=== PATIENT | male | born 1985 | race Caucasian/White ===

== ENCOUNTER 2017-12-08 10:10 | Inpatient (IN) | payer SELFPAY ==
[2017-12-08] VITALS (9 sets, daily range): BP systolic 89–132; BP diastolic 63–83; PULSE 62–92; RESP 16–18; TEMP 97.6–98.5; O2SAT 96–100
[~2017-12-08] VITALS: Ht 172.7 cm; Wt 52.7 kg
[~2017-12-08 10:10] MED LIST: ADDE30TA PO; DICL75 PO; HYDR-3533 PO; XANA1TAB6 PO
[2017-12-08] MEDS ORDERED: SODIUM CHLORIDE 0.9% FLUSH 10 ML FLUSH IVF PRN (10:30)
[2017-12-08] MEDS ORDERED: MORPHINE SULFATE 4 MG/ML INJ IV PUSH ONE ×2 (10:30→11:00)
[2017-12-08] MEDS ORDERED: SODIUM CHLOR 0.9% 1000 ML INJ 1,000 ML IV ONE ×2 (10:30→10:45)
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
[2017-12-08 11:01] LABS: PROTHROMBIN TIME - PATIENT 10.5 SEC (9.8-11.6)
[2017-12-08 11:03] LABS: CREATININE 0.72 MG/DL (0.60-1.30)
[2017-12-08 11:04] LABS: AUTOMATED NEUTROPHIL # 4.7 TH/MM3 (1.8-7.7); BASOPHIL # 0.4 TH/MM3 (0-0.2); BASOPHIL % 3.5 % (0.0-2.0); EOSINOPHIL # 0.4 TH/MM3 (0-0.4); HEMATOCRIT 42.3 % (39.0-51.0); HEMOGLOBIN 13.9 GM/DL (13.0-17.0); LYMPH % 47.1 % (9.0-44.0); LYMPHOCYTE # 5.7 TH/MM3 (1.0-4.8); MEAN CELL VOLUME 89.4 FL (80.0-100.0); MEAN CORPUSCULAR HEMOGLOBIN 29.3 PG (27.0-34.0); MEAN CORPUSCULAR HGB CONC 32.7 % (32.0-36.0); MEAN PLATELET VOLUME 8.3 FL (7.0-11.0); MONOCYTE # 0.8 TH/MM3 (0-0.9); NEUT % 39.4 % (16.0-70.0); PLATELET COUNT 279 TH/MM3 (150-450); RED BLOOD COUNT 4.74 MIL/MM3 (4.50-5.90); RED CELL DISTRIBUTION WIDTH 12.8 % (11.6-17.2)
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
[2017-12-08] MEDS ORDERED: IOHEXOL 350 MG/ML 10 ML VIAL (for RAD DIAG) IVCONTRAST ONE (11:39)
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
[2017-12-08 11:42] LABS: BILIRUBIN, URINE NEG (NEG); BLOOD, URINE NEG (NEG); GLUCOSE,URINE NEG (NEG); KETONE, URINE NEG (NEG); NITRITE,URINE NEG (NEG); URINE COLOR YELLOW (YELLW/STRAW); URINE LEUKOCYTE ESTERASE NEG (NEG)
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
[2017-12-08 12:17] LABS: ATYPICAL LYMPHOCYTES 13 % (0-0); BANDS 2 % (0-6); LYMPHOCYTES 33 % (9-44); MONOCYTES 6 % (0-8); NEUTROPHIL # MANUAL DIFF 5.8 TH/MM3 (1.8-7.7); POLYS (SEG NEUTROPHILS) 46 % (16-70)
--- NOTE | 2017-12-08 12:26 | PD ---
Physical Exam Date Seen by Provider: December 08, 2017 Narrative I was asked repair laceration to the scalp. LACERATION LOCATION: Right parietal scalp LENGTH: 2.5 cm NUMBER OF STITCHES/LUPIS: 7 lupis REPAIR: The area of the laceration was prepped with Betadine and sterilely draped. The laceration was infiltrated with Lidocaine with epinephrine. The wound was copiously irrigated and explored without evidence of foreign body, tendon injury or neurovascular injury. The wound was closed using 7 lupis. This was a single layer repair. A sterile dressing was applied. The patient was advised to keep the dressing clean and dry. Patient tolerated the procedure well. Data Data Last Documented VS Vital Signs Date Time Temp Pulse Resp B/P (MAP) Pulse Ox O2 Delivery O2 Flow Rate FiO2 12/08/17 11:00 16 12/08/17 10:55 99 Room Air 12/08/17 10:10 97.6 62 89/69 (76) Orders Orders Basic Metabolic Panel (Bmp) (12/08/17 10:24) Complete Blood Count With Diff (12/08/17 10:24) Prothrombin Time / Inr (Pt) (12/08/17 10:24) Act Partial Throm Time (Ptt) (12/08/17 10:24) Type And Screen (12/08/17 10:24) Chest, Single Ap (12/08/17 10:24) Ct Brain W/O Iv Contrast(Rout) (12/08/17 10:24) Ct Cerv Spine W/O Contrast (12/08/17 10:24) Ct Abd/Pel W Iv Contrast(Rout) (12/08/17 10:24) Ct Thorax/ Chest W Iv Contrast (12/08/17 10:24) Iv Access Insert/Monitor (12/08/17 10:24) Ecg Monitoring (12/08/17 10:24) Oximetry (12/08/17 10:24) Oxygen Administration (12/08/17 10:24) Morphine Inj (Morphine Inj) (12/08/17 10:30) Sodium Chlor 0.9% 1000 Ml Inj (Ns 1000 M (12/08/17 10:30) Sodium Chloride 0.9% Flush (Ns Flush) (12/08/17 10:30) Ankle, Complete ([id number]) (12/08/17 10:24) Tibia/Fibula (Ap/Lat) (12/08/17 10:24) Sodium Chlor 0.9% 1000 Ml Inj (Ns 1000 M (12/08/17 10:45) Morphine Inj (Morphine Inj) (12/08/17 11:00) Urinalysis - C+S If Indicated (12/08/17 11:28) Ct Ankle W/O Contrast (12/08/17 ) Iohexol 350 Inj (Omnipaque 350 Inj) (12/08/17 11:39) Admit Order (Ed Use Only) (12/08/17 12:01) Labs Laboratory Tests Test 12/08/17 10:35 12/08/17 11:39 White Blood Count 12.0 TH/MM3 Red Blood Count 4.74 MIL/MM3 Hemoglobin 13.9 GM/DL Hematocrit 42.3 % Mean Corpuscular Volume 89.4 FL Mean Corpuscular Hemoglobin 29.3 PG Mean Corpuscular Hemoglobin Concent 32.7 % Red Cell Distribution Width 12.8 % Platelet Count 279 TH/MM3 Mean Platelet Volume 8.3 FL Neutrophils (%) (Auto) 39.4 % Lymphocytes (%) (Auto) 47.1 % Monocytes (%) (Auto) 7.0 % Eosinophils (%) (Auto) 3.0 % Basophils (%) (Auto) 3.5 % Neutrophils # (Auto) 4.7 TH/MM3 Lymphocytes # (Auto) 5.7 TH/MM3 Monocytes # (Auto) 0.8 TH/MM3 Eosinophils # (Auto) 0.4 TH/MM3 Basophils # (Auto) 0.4 TH/MM3 CBC Comment AUTO DIFF Differential Total Cells Counted 100 Neutrophils % (Manual) 46 % Band Neutrophils % 2 % Lymphocytes % 33 % Monocytes % 6 % Neutrophils # (Manual) 5.8 TH/MM3 Differential Comment FINAL DIFF MANUAL Atypical Lymphocytes 13 % Platelet Estimate NORMAL Platelet Morphology Comment NORMAL Prothrombin Time 10.5 SEC Prothromb Time International Ratio 1.0 RATIO Activated Partial Thromboplast Time 28.9 SEC Blood Urea Nitrogen 12 MG/DL Creatinine 0.72 MG/DL Random Glucose 115 MG/DL Calcium Level 9.0 MG/DL Sodium Level 137 MEQ/L Potassium Level 3.7 MEQ/L Chloride Level 106 MEQ/L Carbon Dioxide Level 26.0 MEQ/L Anion Gap 5 MEQ/L Estimat Glomerular Filtration Rate 126 ML/MIN Urine Color YELLOW Urine Turbidity CLEAR Urine pH 6.0 Urine Specific [place] 1.015 Urine Protein NEG mg/dL Urine Glucose (UA) NEG mg/dL Urine Ketones NEG mg/dL Urine Occult Blood NEG Urine Nitrite NEG Urine Bilirubin NEG Urine Urobilinogen 0.2 MG/DL Urine Leukocyte Esterase NEG Microscopic Urinalysis Comment CULT NOT INDICATED MDM Supervised Visit with CARLITOS: Yes Diagnosis Primary Impression: Fracture dislocation of right ankle Additional Impression: Multiple contusions Ericka Claudio December 08, 2017 12:26
[2017-12-08] MEDS ORDERED: HYDROmorphone HCL PF 2 MG/ML VIAL IV PUSH ONE (12:45)
[2017-12-08] MEDS: SODIUM CHLOR 0.9% 1000 ML INJ 1,000 ML IV SCH (18:13)
[2017-12-08] MEDS ORDERED: ENALAPRILAT 1.25 MG/ML VIAL IV PUSH PRN (18:15)
[2017-12-08] MEDS ORDERED: SODIUM CHLORIDE 0.9% FLUSH 10 ML FLUSH IV FLUSH PRN (18:15)
[2017-12-08] MEDS ORDERED: ACETAMINOPHEN/HYDROcodone 325 MG/5 MG TAB PO PRN (18:15)
[2017-12-08] MEDS ORDERED: MAGNESIUM HYDROXIDE SUSP 30 ML CUP PO PRN (18:15)
[2017-12-08] MEDS: MORPHINE SULFATE 4 MG/ML INJ IV PUSH PRN (18:29)
[2017-12-08] MEDS: ACETAMINOPHEN/HYDROcodone 325 MG/5 MG TAB PO PRN ×2 (18:29→22:26)
[2017-12-08] MEDS ORDERED: ONDANSETRON ODT 4 MG TAB PO PRN (18:30)
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
[2017-12-08] MEDS ORDERED: PANTOPRAZOLE SODIUM 40 MG VIAL IVP SCH (19:00)
[2017-12-08] MEDS ORDERED: CHLORHEXIDINE GLUCONATE 2 % 1 PACK (2 CLOTHS) TOPICAL PRN (21:45)
[2017-12-08] MEDS ORDERED: INSULIN HUMAN REGULAR 1,000 UNITS/10 ML VIAL SQ PRN (21:45)
[2017-12-08] MEDS ORDERED: METOPROLOL TARTRATE 25 MG TAB PO PRN (21:45)
[2017-12-08] MEDS ORDERED: POVIDONE IODINE 5% (ANTISEPSIS KIT) 4 APPLICATIONS EACH NARE PRN (21:45)
[2017-12-08] MEDS ORDERED: SODIUM CHLORID 0.9% 500 ML IV PRN (21:45)
[2017-12-08] MEDS: LACTATED RINGER'S 1000 ML IV PRN (23:29)
[2017-12-09] MEDS: MORPHINE SULFATE 4 MG/ML INJ IV PUSH PRN (01:59)
[2017-12-09] MEDS: SODIUM CHLOR 0.9% 1000 ML INJ 1,000 ML IV SCH ×2 (04:13→14:00)
[2017-12-09 04:35] VITALS: BP 122/78; PULSE 67; RESP 17; TEMP 98.1; O2SAT 99
[2017-12-09 05:23] LABS: AUTOMATED NEUTROPHIL # 4.5 TH/MM3 (1.8-7.7); BASOPHIL # 0.1 TH/MM3 (0-0.2); BASOPHIL % 0.6 % (0.0-2.0); EOSINOPHIL # 0.2 TH/MM3 (0-0.4); EOSINOPHIL % 2.4 % (0.0-4.0); HEMATOCRIT 40.1 % (39.0-51.0); HEMOGLOBIN 13.5 GM/DL (13.0-17.0); LYMPH % 36.6 % (9.0-44.0); LYMPHOCYTE # 3.2 TH/MM3 (1.0-4.8); MEAN CELL VOLUME 90.3 FL (80.0-100.0); MEAN CORPUSCULAR HEMOGLOBIN 30.3 PG (27.0-34.0); MEAN CORPUSCULAR HGB CONC 33.6 % (32.0-36.0); MEAN PLATELET VOLUME 8.2 FL (7.0-11.0); MONO % 10.1 % (0.0-8.0); MONOCYTE # 0.9 TH/MM3 (0-0.9); NEUT % 50.3 % (16.0-70.0); PLATELET COUNT 244 TH/MM3 (150-450); RED BLOOD COUNT 4.44 MIL/MM3 (4.50-5.90); RED CELL DISTRIBUTION WIDTH 13.6 % (11.6-17.2); WHITE BLOOD COUNT 8.9 TH/MM3 (4.0-11.0)
[2017-12-09 05:48] LABS: ALBUMIN 3.4 GM/DL (3.4-5.0); AST (GOT) 50 U/L (15-37); BICARBONATE 29.3 MEQ/L (21.0-32.0); BLOOD UREA NITROGEN 9 MG/DL (7-18); CALCIUM 8.8 MG/DL (8.5-10.1); CHLORIDE 103 MEQ/L (98-107); CREATININE 0.85 MG/DL (0.60-1.30); GLOMERULAR FILTRATION RATE 104 ML/MIN (>89); GLUCOSE,RANDOM 93 MG/DL (74-106); SODIUM (NA) 141 MEQ/L (136-145)
[2017-12-09 05:51] LABS: ALKALINE PHOSPHATASE 82 U/L (45-117); ALT (GPT) 108 U/L (12-78); TOTAL BILIRUBIN ADULT 0.7 MG/DL (0.2-1.0); TOTAL PROTEIN 7.5 GM/DL (6.4-8.2)
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
[2017-12-09] MEDS ORDERED: WALKER WHEELS/F1 MIS (06:42)
[2017-12-09] MEDS ORDERED: HYDR-3583 PO (06:42)
[2017-12-09] MEDS ORDERED: CALCTAB19 PO (06:42)
[2017-12-09] MEDS: LACTATED RINGER'S 1000 ML IV PRN (06:48)
[2017-12-09] MEDS ORDERED: VANCOMYCIN HCL 1000 MG VIAL ONE (06:51)
[2017-12-09] MEDS ORDERED: ACETAMINOPHEN 1000 MG/100 ML 100 ML IV ONE (06:51)
[2017-12-09] MEDS ORDERED: ceFAZolin INJ 1,000 MG VIAL ONE (06:52)
[2017-12-09] MEDS ORDERED: SODIUM CHLOR 0.9% 250 ML INJ 250 ML ONE (06:52)
[2017-12-09] MEDS ORDERED: GENTAMICIN SULFATE 80 MG/2 ML VIAL ONE (06:52)
[2017-12-09] MEDS ORDERED: HYDR-3288 PO (08:27)
[2017-12-09] MEDS ORDERED: MORPHINE SULFATE 4 MG/ML INJ IV PUSH PRN (08:30)
[2017-12-09] MEDS ORDERED: Post-op Orders (for Pharmacy) XX ONE (08:30)
--- NOTE | 2017-12-09 08:31 | PD.OP ---
cc: Florin Anton MD Operative Report Date of Surgery: December 09, 2017 Preoperative Diagnosis: Displaced comminuted right ankle fracture Postoperative Diagnosis: Procedure: Open reduction internal fixation right ankle bimalleolar fracture Anesthesia: General Surgeon: Florin Anton Soaking Tank Worker(s): SERINA Mackenzie PA-C The surgical procedure was assisted by my physician service assistant. My P.A. presence was necessary throughout this case for the manipulation and positioning of the surgical extremity. My P.A. was assisting me throughout the duration of this procedure. The skill set of a physician service assistant was medically necessary to complete this procedure. During the surgical case the assembler surgical garment was working at the back table and the physician service assistant was directly assisting me. Operation and Findings: Implants used : ITS Plan of activity: Strict nonweightbearing right leg Patient was seen and evaluated preoperatively and found to have a displaced ankle fracture. Informed consent was obtained after a detailed discussion of risk and benefits of surgery. The operative site was marked. Patient was brought to the OR, placed on the OR table, and given IV sedation and general endotracheal anesthesia. IV antibiotics were given preoperatively. A timeout procedure was performed. The operative leg was prepped with alcohol followed by Hibiclens and draped in the usual sterile fashion. Attention was turned towards the distal fibula. Patient had a deep abrasion near the fracture site. Because of this abrasion, I did not feel that it would be safe to make open incision over the lateral fibula. Next attention was turned towards the medial malleolus. The medial malleolus supposed through a 4 cm incision. Saphenous vein was retracted. Fracture was visualized. Fracture was cleaned with curettes. The articular surface was visualized. There was a small area of impaction of the articular surface. This was elevated with a Chilton elevator. Fracture was now reduced and keyed into anatomic alignment. K wires were used to hold provisional fixation. The fracture was relatively unstable. A plate was contoured to fit the medial malleolus. Plate was provisionally held to bone with K wires. 2.7 cortical screws were used to compress plate to bone. Additional locking screws were placed proximally. An additional 3.5 cortical screw was placed in a retrograde fashion across the fracture site. Good compression was applied. Fluoroscopy confirmed well aligned fracture with well-placed hardware. Attention was now turned back to the fibula. The fibula was reduced with manipulation. Fracture reduced and excellent alignment. A percutaneous incision was made distal to the fibula. A guidepin was placed in a retrograde fashion across the fibula fracture. Screw length was measured. A 4.0 Reny screw was placed in a retrograde fashion across the fracture site. Good compression was obtained. Next, attention was turned to the syndesmosis. The syndesmosis was stressed. There was no widening of the syndesmosis with external rotation of the ankle. Incisions were thoroughly irrigated. The subcutaneous tissue was closed with 3- 0 Vicryl and the skin was closed with 3-0 nylon. Sterile dressings were applied. A well molded well-padded splint was applied. The patient was transferred to Recovery in stable condition. Needle and sponge counts were correct. Florin Anton MD December 09, 2017 08:31
[2017-12-09] MEDS ORDERED: DO NOT ADM ANY ANTICOAGULANT DRUGS PRN (08:45)
[2017-12-09] MEDS ORDERED: *MEPERIDINE 25 MG INJ VIAL PERIprocedural Use ONLY ONE (08:51)
[2017-12-09] MEDS ORDERED: MIDAZOLAM HCL 2 MG/2 ML VIAL ONE (08:52)
[2017-12-09] MEDS ORDERED: *morphine SULFATE 8 MG/ML PERIprocedure ONLY ONE ×2 (08:59→09:09)
[2017-12-09] MEDS ORDERED: DOCUSATE SODIUM 50 MG/SENNA 8.6 MG TAB PO SCH (09:00)
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
[2017-12-09] MEDS: ACETAMINOPHEN/HYDROcodone 325 MG/7.5 MG TAB PO PRN ×2 (10:33→15:31)
[2017-12-09] MEDS ORDERED: MAGN30S PO (11:27)
[2017-12-09] MEDS ORDERED: PERI PO (11:27)
[2017-12-09 12:00] VITALS: BP 147/83; PULSE 65; RESP 18; TEMP 98.2; O2SAT 97
[2017-12-09] MEDS ORDERED: DEXAMETHASONE SOD PHOS 4 MG/ML VIAL IV ONE (12:00)
[2017-12-09] MEDS ORDERED: PROPOFOL 200 MG/20 ML AMP IV ONE (12:00)
[2017-12-09] MEDS ORDERED: ONDANSETRON HCL 4 MG/2 ML VIAL IV ONE (12:00)
[2017-12-09] MEDS ORDERED: LIDOCAINE HCL 1% PF 5 ML SYRINGE OTHER ONE (12:00)
--- NOTE | 2017-12-09 12:06 | RADRPT ---
EXAM DATE: 12/09/2017 9:58 AM EDT AGE/SEX: 32 years / Male INDICATIONS: Right ankle fracture, ORIF done in operating room. CLINICAL DATA: This is the patient's initial encounter. Patient reports that signs and symptoms have been present for 1 day and indicates a pain score of Nonresponsive. MEDICAL/SURGICAL HISTORY: Non-responsive. . COMPARISON: No prior exams available for comparison. FINDINGS: Normal alignment across bimalleolar fracture status post fixation with lag screw at the lat eral malleolus and plate and screw fixation of the medial malleolus. CONCLUSION: Fixation right ankle as above. Electronically signed by: Warren Aranda MD 12/09/2017 12:04 PM EDT
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
[2017-12-09] MEDS ORDERED: ceFAZolin 2 GM PREMIX 50 ML IV SCH (16:00)
== END 2017-12-09 16:27 | disposition home or self-care (01) | DRG 494 ==
LOC: PHED 10:10 → PHEDA 12:02 → N06A 17:00
PROVIDERS: ADMIT Surgery; ATTEND Surgery
PROC: 0HQ0XZZ Repair Scalp Skin, External Approach (ICD-10-PCS; principal; 2017-12-08)
PROC: 0QSG04Z Reposition Right Tibia with Internal Fixation Device, Open Approach (ICD-10-PCS; 2017-12-09)
PROC: 0QSJ04Z Reposition Right Fibula with Internal Fixation Device, Open Approach (ICD-10-PCS; 2017-12-09)
DX: S82.841A Displaced bimalleolar fracture of right lower leg, initial encounter for closed fracture (principal); F41.9 Anxiety disorder, unspecified; S01.01XA Laceration without foreign body of scalp, initial encounter; S30.810A Abrasion of lower back and pelvis, initial encounter; F17.210 Nicotine dependence, cigarettes, uncomplicated; V87.8XXA Person injured in other specified noncollision transport accidents involving motor vehicle (traffic), initial encounter
CPT/HCPCS: 70450; 71045; 71260; 72125; 73590; 73600; 73610; 73700; 74177; 80048; 80053; 81001; 85007; 85025; 85027; 85610; 85730; 86850; 86900; 86901; 94150; C1713; J0131; J0690; J1100; J1170; J1580; J2175; J2250; J2270; J2405; J3010; J3370; J7030; J7050; J7120; Q9967